=== PATIENT | female | born 1960 | race Caucasian/White ===

== ENCOUNTER 2023-10-29 10:30 | Day surgery (SDC) | payer OTHER ==
[2023-10-22 11:03] VITALS: BMI 26.3
[2023-10-29 11:48] VITALS: RESP 18
[2023-10-29 12:13] VITALS: BP 112/81; PULSE 69; TEMP 98.9
== END 2023-10-29 12:15 | disposition home or self-care (01) ==
LOC: FASU-ENDO 10:30
PROVIDERS: ATTEND Internal Medicine Gastroenterology
PROC: 0DJD8ZZ Inspection of Lower Intestinal Tract, Via Natural or Artificial Opening Endoscopic (ICD-10-PCS; principal; 2023-10-29 11:17)
DX: Z12.11 Encounter for screening for malignant neoplasm of colon (principal); K57.30 Diverticulosis of large intestine without perforation or abscess without bleeding; K64.1 Second degree hemorrhoids; Z86.010 Personal history of colon polyps

== ENCOUNTER 2023-11-02 08:28 | Day surgery (SDC) | payer OTHER ==
[2023-10-22 10:53] VITALS: BMI 26.3
[2023-11-02 08:46] VITALS: RESP 18; TEMP 97
[2023-11-02 10:39] VITALS: BP 120/71; PULSE 73
== END 2023-11-02 10:10 | disposition home or self-care (01) ==
LOC: FASU-ENDO 08:28
PROVIDERS: ATTEND Internal Medicine Gastroenterology
PROC: 0DB68ZX Excision of Stomach, Via Natural or Artificial Opening Endoscopic, Diagnostic (ICD-10-PCS; 2023-11-02)
PROC: 0DB28ZX Excision of Middle Esophagus, Via Natural or Artificial Opening Endoscopic, Diagnostic (ICD-10-PCS; 2023-11-02)
PROC: 0DB48ZX Excision of Esophagogastric Junction, Via Natural or Artificial Opening Endoscopic, Diagnostic (ICD-10-PCS; 2023-11-02)
PROC: 0DB98ZX Excision of Duodenum, Via Natural or Artificial Opening Endoscopic, Diagnostic (ICD-10-PCS; principal; 2023-11-02 09:31)
DX: R13.10 Dysphagia, unspecified (principal); K25.9 Gastric ulcer, unspecified as acute or chronic, without hemorrhage or perforation; K44.9 Diaphragmatic hernia without obstruction or gangrene; K20.90 Esophagitis, unspecified without bleeding
CPT/HCPCS: 88305-TC; 88342-TC

== ENCOUNTER 2023-12-28 11:26 | Day surgery (SDC) | payer OTHER ==
[2023-12-20 13:11] VITALS: BMI 26.3
[2023-12-28 11:45] VITALS: RESP 16
[2023-12-28 13:25] VITALS: TEMP 96.9
[2023-12-28 13:37] VITALS: BP 127/76; PULSE 62
== END 2023-12-28 13:25 | disposition home or self-care (01) ==
LOC: FASU-ENDO 11:26
PROVIDERS: ATTEND Internal Medicine Gastroenterology
PROC: 0DB68ZX Excision of Stomach, Via Natural or Artificial Opening Endoscopic, Diagnostic (ICD-10-PCS; principal; 2023-12-28 12:40)
DX: Z87.11 Personal history of peptic ulcer disease (principal); K29.50 Unspecified chronic gastritis without bleeding
CPT/HCPCS: 88305-TC; 88342-TC